=== PATIENT | male | born 1980 | race Caucasian/White ===

== ENCOUNTER 2020-12-27 13:46 | Inpatient (IN) | payer OTHER ==
[~2020-12-27] VITALS: Ht 182.9 cm; Wt 113.9 kg
[2020-12-27 13:55] VITALS: BP 168/61
[2020-12-27 14:43] LABS: ABSOLUTE MONOCYTES 0.5 thou/uL (0.0-1.2); ABSOLUTE NEUTROPHILS 4.7 thou/uL (1.6-8.1); BASOPHILS 0.1 %; HEMATOCRIT 39.9 % (42.0-52.0); HEMOGLOBIN 14.3 gm/dL (14.0-18.0); LYMPHOCYTES 16.7 %; MCHC 35.9 g/dL (28.0-37.0); MCV 83.7 fL (80.0-100.0); MONOCYTES 7.5 %; NUCLEATED RBCS 0 /100WBC; PLATELET COUNT* 229 thou/uL (150-400); POLYS 75.7 %; RBC 4.77 mil/uL (4.50-6.00); RDW-CV 13.4 % (10.5-14.5); WBC 6.2 thou/uL (4.0-11.0)
[2020-12-27 14:48] LABS: CALCIUM 8.1 mg/dL (8.5-10.1); CREATININE 1.3 mg/dL (0.6-1.3); POTASSIUM 3.7 mmol/L (3.5-5.1)
[2020-12-27 14:59] LABS: ALBUMIN 3.4 g/dL (3.4-5.0); TOTAL BILIRUBIN 0.4 mg/dL (<0.1-1.0); TOTAL PROTEIN 7.8 g/dL (6.4-8.2)
[2020-12-27 18:22] VITALS: BP 128/78
[2020-12-27 18:45] VITALS: BP 141/92
[2020-12-27 19:50] VITALS: BP 131/77
[2020-12-28] VITALS (11 sets, daily range): BP systolic 110–137; BP diastolic 65–85
[2020-12-28 09:28] LABS: CALCIUM 8.4 mg/dL (8.5-10.1); POTASSIUM 3.6 mmol/L (3.5-5.1)
[2020-12-28 09:31] LABS: MAGNESIUM 2.4 mg/dL (1.8-2.4)
--- NOTE | 2020-12-28 11:31 | EKG ---
[place] [address] ELECTROCARDIOGRAM REPORT Name: SILVA TRIANA JR Room: [address] ADM IN M.R.#: [id number] Admission: 12/27/20 Attend Phys: Noah Phillip Discharge: Date of : 82 Date of Service: 12/27/20 1434 Report #: [id number] THIS REPORT FOR: //name// 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: SANJEEV : 1980 Requested By: Colt Bloom Order Number: [id number] MD: Luke Miguel Measurements Intervals [place] Rate: 102 P: 29 NC: 160 QRS: -4 QRSD: 91 T: -10 QT: 321 QTc: 419 Interpretive Statements Sinus tachycardia Left ventricular hypertrophy Borderline T abnormalities, inferior leads Baseline wander in lead(s) V2 No previous ECG available for comparison Electronically Signed On 12-28-2020 11:31:13 CDT by Luke Miguel [email or web address] <ELECTRONICALLY SIGNED> By: Luke Miguel MD, [facility] 12/28/20 1131 1434 1434 Luke Miguel MD, [facility] /EPI
[2020-12-29] VITALS (24 sets, daily range): BP systolic 101–135; BP diastolic 59–82
[2020-12-30] VITALS (28 sets, daily range): BP systolic 104–173; BP diastolic 59–94
[2020-12-30 08:35] LABS: CREATININE 0.9 mg/dL (0.6-1.3); POTASSIUM 4.1 mmol/L (3.5-5.1)
[2020-12-30 12:49] LABS: APTT 23.9 Seconds (25.0-31.3); PROTIME 10.9 Seconds (9.20-11.50)
[2020-12-31] VITALS (24 sets, daily range): BP systolic 107–131; BP diastolic 61–81
[2020-12-31 04:51] LABS: ABSOLUTE LYMPHOCYTES 1.1 thou/uL (0.8-5.3); ABSOLUTE NEUTROPHILS 8.7 thou/uL (1.6-8.1); BASOPHILS 0.1 %; HEMATOCRIT 37.7 % (42.0-52.0); HEMOGLOBIN 13.5 gm/dL (14.0-18.0); LYMPHOCYTES 10.4 %; MCHC 35.9 g/dL (28.0-37.0); MCV 83.7 fL (80.0-100.0); MONOCYTES 9.5 %; MPV 8.2 fl. (7.2-11.1); NUCLEATED RBCS 0 /100WBC; PLATELET COUNT* 424 thou/uL (150-400); RDW-CV 13.5 % (10.5-14.5); WBC 10.9 thou/uL (4.0-11.0)
[2020-12-31 05:03] LABS: CALCIUM 8.3 mg/dL (8.5-10.1); POTASSIUM 4.3 mmol/L (3.5-5.1)
--- NOTE | 2020-12-31 15:23 | 2DMMODE ---
[place] [address] 2 D/M-MODE ECHOCARDIOGRAM Name: KAMILAHSILVA JR Room: [address] ADM IN Maximiliano#: [id number] Admission: 12/27/20 Attend Phys: Noah Phillip Discharge: Date of : 82 Date of Service: 12/31/20 1523 Report #: [id number] THIS REPORT FOR: cc: FAM - No family physician/PCP FAM - No family physician/PCP Luke Miguel MD [facility] ~ APPROVED REPORT Study performed: 12/31/2020 14:44:30 EXAM: Comprehensive 2D, Doppler, and color-flow Echocardiogram Patient Location: In-Patient Room #: 003 Status: routine BSA: 2.35 HR: 54 bpm BP: 112/70 mmHg Rhythm: NSR Other Information Study Quality: Good Indications Dyspnea 2D Dimensions IVSd: 9.65 (7-11mm) LVOT Diam: 21.54 (18-24mm) LVDd: 50.03 mm PWd: 10.43 (7-11mm) Ascending Ao: 30.21 (22-36mm) LVDs: 30.49 (25-40mm) Aortic Root: 31.68 mm Volumes Left Atrial Volume (Systole) LA ESV Index: 19.90 mL/m2 Aortic Valve AoV Peak John.: 1.19 m/s AO Peak Gr.: 5.62 mmHg LVOT Max P.59 mmHg AO Mean Gr.: 3.09 mmHg LVOT Mean P.15 mmHg LVOT Max V: 1.07 m/s AO V2 VTI: 25.28 cm LVOT Mean V: 0.67 m/s SERGEI (VTI): 3.20 cm2 LVOT V1 VTI: 22.20 [place] [address] 2 D/M-MODE ECHOCARDIOGRAM Name: SILVA TRIANA JR Room: [address]#: [id number] Admission: 12/27/20 Attend Phys: Noah Phillip Discharge: Date of : 82 Date of Service: 12/31/20 1523 Report #: [id number] Mitral Valve E/A Ratio: 1.51 MV Decel. Time: 234.13 ms MV E Max John.: 0.74 m/s MV PHT: 67.90 ms MVA (PHT): 3.24 cm2 TDI E/Lateral E': 3.89 E/Medial E': 6.73 Medial E' John.: 0.11 m/s Lateral E' John.: 0.19 m/s Pulmonary Valve PV Peak John.: 1.00 m/s PV Peak Gr.: 4.02 mmHg Tricuspid Valve RAP Estimate: 5.00 mmHg TR Peak Gr.: 26.10 mmHg RVSP: 31.00 mmHg PA Pressure: 31.00 mmHg Left Ventricle The left ventricle is normal size. There is normal LV segmental wall motion. There is normal left ventricular wall thickness. Left ventricular systolic function is normal. The left ventricular ejection fraction is within the normal range. LVEF is 55-60%. The left ventricular diastolic function is normal. Right Ventricle The right ventricle is normal size. The right ventricular systolic function is normal. Atria The left atrium size is normal. The right atrium size is normal. Aortic Valve The aortic valve is normal in structure. Trace aortic regurgitation. There is no aortic valvular stenosis. Mitral Valve The mitral valve is normal in structure. Trace mitral regurgitation. No evidence of mitral valve stenosis. Tricuspid Valve The tricuspid valve is normal in structure. There is trace tricuspid valve [place] [address] 2 D/M-MODE ECHOCARDIOGRAM Name: SILVA TRIANA JR Room: [address] IN [facility]#: [id number] Admission: 12/27/20 Attend Phys: Noah Phillip Discharge: Date of : 82 Date of Service: 12/31/20 1523 Report #: [id number] Pulmonic Valve The pulmonary valve is normal in structure. There is no pulmonic valvular regurgitation. Great Vessels The aortic root is normal in size. IVC is normal in size and collapses >50% with inspiration. Pericardium There is no pericardial effusion. <Conclusion> LVEF is 55-60%. Trace aortic regurgitation. Trace mitral regurgitation. There is trace tricuspid valve regurgitation noted. <ELECTRONICALLY SIGNED> By: Luke Miguel MD, [facility] 12/31/20 1523 1523 1523 Luke Miguel MD, FAC /INF
[2021-01-01] VITALS (24 sets, daily range): BP systolic 101–133; BP diastolic 45–82
[2021-01-01 03:48] LABS: ABSOLUTE LYMPHOCYTES 1.4 thou/uL (0.8-5.3); ABSOLUTE MONOCYTES 1.1 thou/uL (0.0-1.2); ABSOLUTE NEUTROPHILS 11.5 thou/uL (1.6-8.1); BASOPHILS 0.3 %; HEMATOCRIT 40.2 % (42.0-52.0); LYMPHOCYTES 10.2 %; MCH 29.5 pg (26.0-34.0); MCHC 34.8 g/dL (28.0-37.0); MCV 84.8 fL (80.0-100.0); MONOCYTES 7.9 %; MPV 7.9 fl. (7.2-11.1); NUCLEATED RBCS 0 /100WBC; POLYS 81.6 %; RBC 4.74 mil/uL (4.50-6.00); RDW-CV 13.3 % (10.5-14.5); WBC 14.1 thou/uL (4.0-11.0)
[2021-01-01 04:14] LABS: PLATELET COUNT* 509 thou/uL (150-400)
[2021-01-01 04:46] LABS: CALCIUM 8.1 mg/dL (8.5-10.1); MAGNESIUM 2.6 mg/dL (1.8-2.4); PHOSPHORUS* 4.5 mg/dL (2.5-4.9); POTASSIUM 4.5 mmol/L (3.5-5.1); TOTAL BILIRUBIN 0.4 mg/dL (<0.1-1.0); TOTAL PROTEIN 7.2 g/dL (6.4-8.2)
[2021-01-02] VITALS (24 sets, daily range): BP systolic 88–131; BP diastolic 40–79
[2021-01-02 04:10] LABS: HEMATOCRIT 40.5 % (42.0-52.0); HEMOGLOBIN 13.9 gm/dL (14.0-18.0); MCH 29.2 pg (26.0-34.0); MCHC 34.4 g/dL (28.0-37.0); MCV 84.9 fL (80.0-100.0); NUCLEATED RBCS 0 /100WBC; PLATELET COUNT* 563 thou/uL (150-400); RBC 4.77 mil/uL (4.50-6.00); RDW-CV 13.1 % (10.5-14.5)
[2021-01-02 04:31] LABS: CALCIUM 8.3 mg/dL (8.5-10.1); MAGNESIUM 2.4 mg/dL (1.8-2.4); POTASSIUM 4.8 mmol/L (3.5-5.1); TOTAL BILIRUBIN 0.4 mg/dL (<0.1-1.0); TOTAL PROTEIN 6.8 g/dL (6.4-8.2)
[2021-01-02 05:38] LABS: ABSOLUTE EOSINOPHILS 0.2 thou/uL (0.0-0.7); ABSOLUTE LYMPHOCYTES 1.8 thou/uL (0.8-5.3); CLUMPED PLTS FEW; TOXIC GRANULATION 1+
[2021-01-02 05:39] LABS: PLATELET ESTIMATE INCREASED
[2021-01-03] VITALS (17 sets, daily range): BP systolic 102–125; BP diastolic 60–85
[2021-01-03 03:46] LABS: HEMATOCRIT 40.8 % (42.0-52.0); HEMOGLOBIN 14.2 gm/dL (14.0-18.0); MCH 29.4 pg (26.0-34.0); MCV 84.2 fL (80.0-100.0); MPV 7.9 fl. (7.2-11.1); RBC 4.84 mil/uL (4.50-6.00); WBC 16.6 thou/uL (4.0-11.0)
[2021-01-03 03:58] LABS: POTASSIUM 4.9 mmol/L (3.5-5.1)
[2021-01-04 00:25] VITALS: BP 120/60
[2021-01-04 04:00] VITALS: BP 102/47
[2021-01-04 08:00] VITALS: BP 115/67
[2021-01-04 11:55] VITALS: BP 127/67
[2021-01-04 15:57] VITALS: BP 116/66
[2021-01-04 20:00] VITALS: BP 129/70
[2021-01-05 00:31] VITALS: BP 117/72
[2021-01-05 04:24] LABS: HEMATOCRIT 39.3 % (42.0-52.0); HEMOGLOBIN 13.8 gm/dL (14.0-18.0); MCH 29.6 pg (26.0-34.0); MCV 84.8 fL (80.0-100.0); MPV 8.3 fl. (7.2-11.1); RBC 4.64 mil/uL (4.50-6.00); RDW-CV 13.3 % (10.5-14.5); WBC 14.9 thou/uL (4.0-11.0)
[2021-01-05 04:38] VITALS: BP 120/70
[2021-01-05 08:00] VITALS: BP 130/71
[2021-01-05] MEDS ORDERED: LEVOFLOXACIN500 MG PO (09:00)
[2021-01-05] MEDS ORDERED: PREDNISONE 10 M10 M1 PO (09:02)
[2021-01-05] MEDS ORDERED: PROAIR HFA8.5 GM INH (09:03)
[2021-01-05 11:54] VITALS: BP 121/76
[2021-01-05 15:03] VITALS: BP 121/76
== END 2021-01-05 17:00 | disposition home or self-care (01) | DRG 177 ==
LOC: M.ERS 13:46 → M.TBA-ER 14:57 → M.ICU 14:57 → M.2W 18:34 → M.ICU 12-28 05:26 → M.ORTHSURG 01-03 17:35
PROVIDERS: Emergency Medicine Emergency Medical Services; Internal Medicine; Internal Medicine Critical Care Medicine; ADMIT Internal Medicine; ATTEND Internal Medicine
PROC: XW033E5 Introduction of Remdesivir Anti-infective into Peripheral Vein, Percutaneous Approach, New Technology Group 5 (ICD-10-PCS; principal; 2020-12-28)
PROC: 5A0945A Assistance with Respiratory Ventilation, 24-96 Consecutive Hours, High Flow/Velocity Cannula (ICD-10-PCS; principal; 2020-12-28)
PROC: XW13325 Transfusion of Convalescent Plasma (Nonautologous) into Peripheral Vein, Percutaneous Approach, New Technology Group 5 (ICD-10-PCS; 2020-12-30)
PROC: 5A09357 Assistance with Respiratory Ventilation, Less than 24 Consecutive Hours, Continuous Positive Airway Pressure (ICD-10-PCS; 2020-12-31)
PROC: 5A0935A Assistance with Respiratory Ventilation, Less than 24 Consecutive Hours, High Flow/Velocity Cannula (ICD-10-PCS; 2020-12-31)
PROC: 5A09357 Assistance with Respiratory Ventilation, Less than 24 Consecutive Hours, Continuous Positive Airway Pressure (ICD-10-PCS; 2021-01-01)
PROC: 5A0935A Assistance with Respiratory Ventilation, Less than 24 Consecutive Hours, High Flow/Velocity Cannula (ICD-10-PCS; 2021-01-01)
PROC: 5A0935A Assistance with Respiratory Ventilation, Less than 24 Consecutive Hours, High Flow/Velocity Cannula (ICD-10-PCS; 2021-01-02)
PROC: 5A09357 Assistance with Respiratory Ventilation, Less than 24 Consecutive Hours, Continuous Positive Airway Pressure (ICD-10-PCS; 2021-01-02)
PROC: 5A09357 Assistance with Respiratory Ventilation, Less than 24 Consecutive Hours, Continuous Positive Airway Pressure (ICD-10-PCS; 2021-01-03)
PROC: 5A0935A Assistance with Respiratory Ventilation, Less than 24 Consecutive Hours, High Flow/Velocity Cannula (ICD-10-PCS; 2021-01-03)
DX: U07.1 COVID-19 (principal); J96.01 Acute respiratory failure with hypoxia; J12.82 Pneumonia due to coronavirus disease 2019; N17.9 Acute kidney failure, unspecified; R04.2 Hemoptysis; R65.10 Systemic inflammatory response syndrome (SIRS) of non-infectious origin without acute organ dysfunction; I95.9 Hypotension, unspecified; I10 Essential (primary) hypertension; E11.9 Type 2 diabetes mellitus without complications; E86.0 Dehydration; E87.6 Hypokalemia; J44.9 Chronic obstructive pulmonary disease, unspecified; K29.70 Gastritis, unspecified, without bleeding; Z87.01 Personal history of pneumonia (recurrent)